=== PATIENT | male | born 1975 | race Hispanic/Latino ===

== ENCOUNTER 2017-02-07 11:07 | Emergency (ER) | payer BC ==
[2017-02-07] MEDS ORDERED: Fluorescein Opthalmic Strip ONE (12:59)
[2017-02-07] MEDS ORDERED: Tetracaine HCl 0.5% Ophth Soln 2 ML Bottle ONE (12:59)
[2017-02-07] MEDS ORDERED: Ibuprofen 800 MG TAB ONE (13:56)
[2017-02-07] MEDS ORDERED: Ciprofloxacin 0.3% Ophth Drops 2.5 ml Bottle ONE (13:57)
[2017-02-07] MEDS ORDERED: Adacel (T-DAP) 0.5 ML VIAL ONE (13:58)
== END 2017-02-07 14:18 | disposition home or self-care (01) ==
LOC: NAV ERS 11:07
DX: T15.82XA Foreign body in other and multiple parts of external eye, left eye, initial encounter (principal); Z23 Encounter for immunization
CPT/HCPCS: 65220; 90471; 90715

== ENCOUNTER 2024-02-07 17:23 | Emergency (ER) | payer SELFPAY ==
[2024-02-07] MEDS ORDERED: traMADol HCl 50 MG TAB ONE (18:23)
== END 2024-02-07 19:23 | disposition home or self-care (01) ==
LOC: NAV ERS 17:23
DX: S92.511A Displaced fracture of proximal phalanx of right lesser toe(s), initial encounter for closed fracture (principal); W20.8XXA Other cause of strike by thrown, projected or falling object, initial encounter

== ENCOUNTER 2024-06-15 08:38 | Emergency (ER) | payer SELFPAY | END 2024-06-15 09:07 | disposition home or self-care (01) | LOC: NAV ERS 08:38 | DX: M19.041 Primary osteoarthritis, right hand (principal); R03.0 Elevated blood-pressure reading, without diagnosis of hypertension | CPT/HCPCS: 99283 ==

== ENCOUNTER 2024-09-08 10:22 | Outpatient (CLI) | payer OTHER | END 2024-09-08 10:23 | disposition home or self-care (01) | LOC: NAV RAD 10:22 | PROVIDERS: ATTEND Nurse Practitioner Family | DX: M79.89 Other specified soft tissue disorders (principal); S62.651A Nondisplaced fracture of middle phalanx of left index finger, initial encounter for closed fracture ==